=== PATIENT | male | born 1945 | race Hispanic/Latino ===

== ENCOUNTER 2016-11-30 17:28 | Emergency (ER) | payer MEDICARE, MEDICAID ==
[~2016-11-30] VITALS: Ht 167.6 cm; Wt 81.8 kg
[~2016-11-30 17:28] MED LIST: FINA5TAB9 PO; METO50TA3 PO; TAMS0.4C98 PO
[2016-11-30 17:30] VITALS: BP 203/101; PULSE 95; RESP 18; O2SAT 99
--- NOTE | 2016-11-30 18:37 | ED.REPORT ---
HPI-General Illness Date of Service Nov 30, 2016 ED Provider: Fredy Gallegos DO Pt is a 71 year old male with a history of HTN who presents to the ED complaining of elevated blood pressure (187). He c/o associated elevated heart rate. He denies headache, chest pain, and SOB. Pt reports that he started new medication (10 mg lisinopril) for his HTN, but he was previously taking 100 mg metoprolol BID 1 week ago. The pt was previously in [place], but he ran out of his medication upon arrival to the . Nursing Notes Stated Complaint: CHECK BLOOD PRESSURE Chief Complaint: General Complaint Nursing Notes Reviewed: Yes Allergies: Coded Allergies: No Known Allergies (Verified Allergy, Unknown, 12/23/13) Scheduled Finasteride (Finasteride) 5 Mg Tablet 5 MG PO DAILY Metoprolol Tartrate (Metoprolol Tartrate) 50 Mg Tablet 50 MG PO BID Tamsulosin (Flomax) 0.4 Mg Capsule 0.4 MG PO DAILY General Time Seen by MD: 18:37 Chief Complaint Other (elevated blood pressure) Hx Obtained From: Patient Arrived By: Walk-in Sudden in Onset?: No Onset Occurred: Just prior to arrival Symptom Duration: Since onset Severity: Current: No pain currently Severity: Maximum: No pain Recent Healthcare: Recent doctor visit Similar Sx Previous: No Past Medical History Past Medical History BPH Reports: Hypertension Past Surgical History Denies Smoking History Never Smoker Social History Alcohol Use: Denies alcohol use Drug Use: Denies drug use Other Social History: Good social support Ambulatory Status Independent Review of Systems + elevated blood pressure + elevated heart rate Full Review of Systems Respiratory: Denies: Shortness of breath Cardiovascular: Denies: Chest pain Neurologic: Denies: Headache Complete sys rev & neg: except as marked. Physical Exam Vital Signs Vital Signs Date Time Temp Pulse Resp B/P Pulse Ox O2 Delivery O2 Flow Rate FiO2 11/30/16 22:07 56 16 176/82 100 Room Air 11/30/16 20:30 165/65 11/30/16 19:14 165/68 11/30/16 17:30 95 18 203/101 99 Room Air Initial VS: Reviewed Head / Eyes: Atraumatic, Normocephalic Neck: Supple, Full range of motion Respiratory: Breath sounds normal, Clear to auscultation, No respiratory distress Cardiovascular: Regular rate & rhythm, Heart sounds normal, Intact distal pulses Abdomen / GI: Soft, Non-tender Extremities: Vascular intact, Neuro intact Skin: Warm, Dry, No cyanosis Neurologic: Alert, Oriented, Nonfocal Psychiatric: Mood/affect normal, Behavior normal General/Constitutional: Awake, Alert Interpretation & Diagnostics Lab Results Interpretation Result Diagram: 11/30/16193311/30/161933 Test 11/30/16 19:34 White Blood Count 6.2th/mm3 (3.8-10.1) Red Blood Count 4.56mil/mm3 (4.40-5.80) Hemoglobin 14.8g/dL (13.8-17.2) Hematocrit 41.9% (41.0-50.0) Mean Corpuscular Volume 91.9fL (81-100) Mean Corpuscular Hemoglobin 32.5pg (27.0-35.0) Mean Corpuscular Hemoglobin Concent 35.3% (32.0-37.0) Red Cell Distribution Width 12.2% (12.3-15.4) Platelet Count 207bil/L (150-400) Neutrophils (%) (Auto) 59.3% (40-74) Lymphocytes (%) (Auto) 31.1% (14-46) Monocytes (%) (Auto) 8.5% (4-12) Eosinophils (%) (Auto) 0.8% (0-5) Basophils (%) (Auto) 0.3% (0-3) Sodium Level 136mEq/L (134-144) Potassium Level 4.3mEq/L (3.5-5.2) Chloride Level 102mEq/L (97-108) Carbon Dioxide Level 20mmol/L (18-29) Blood Urea Nitrogen 16mg/dL (8-27) Creatinine 0.67mg/dL (0.76-1.27) Estimat Glomerular Filtration Rate 124mL/min (>59) Glucose Level 134mg/dL (60-99) Calcium Level 9.2mg/dL (8.5-10.1) Total Bilirubin 0.5mg/dL (0.0-1.2) Aspartate Amino Transf (AST/SGOT) 13U/L (0-50) Alanine Aminotransferase (ALT/SGPT) 9U/L (0-44) Alkaline Phosphatase 69U/L (25-160) Troponin T < 0.010ug/L (0.0-0.011) Total Protein 7.4g/dL (6.4-8.4) Albumin 4.1g/dL (3.4-5.0) Hold Turner Top Tube Received (Received) ECG Interpretation Time: 20:30 Interpreted by: ED physician Normal ECG Interpretation: Normal ECG w/ rate of... (61) Re-Eval/Medical Decision Med Decision/Clinical Course I think there is a component of metoprolol withdrawal. He was given 50 mg orally and his blood pressure came down to 160 his heart rate was in the 70s. I am to start him back on the metoprolol he will slowly graduate the dose.* Metformin 25 and try to see what his target is going to be. I did not initiate a 100 mg twice daily because he is been added lisinopril already. Labs look good. WI ruled out. No signs of stroke or end organ disease. This is essentially asymptomatic hypertension. Routine outpatient follow-up recommended. Source of Hx: Old records Time of Eval: 21:58 Re-Evaluation/Progress Note: Pt rechecked. Informed pt of plan for discharge. Pt understands and agrees with plan for discharge. F/U instructions and RTER warnings given. All questions addressed. Counseled Regarding: Diagnosis, Lab results, Need for follow-up, When/why to return to ED Discharge & Departure Primary Impression: High blood pressure Hypertension type: unspecified secondary hypertension Qualified Code: I15.9 - Secondary hypertension, unspecified Disposition: Home Discharge Condition All VS Reviewed: Yes Condition: Stable Patient Instructions: Hypertension (ED) Additional Instructions: Your ECG, blood tests, and labs were all very reassuring. Continue with your lisinopril medication. Start taking metoprolol 1x daily. This dose may need to be increased in a few weeks. Call your primary care provider on Wednesday for a follow up appointment this week. Check your blood pressure 3x daily and keep a log of your blood pressure results. Return to the Emergency Department for any new or worrisome symptoms. Referrals: Re Ramírez DO (PCP) Scribe Attestation Portions of this note were transcribed by Katharina Oconnor. I, Dr. Gallegos personally performed the history, physical exam and medical decision-making; I reviewed and confirmed the accuracy of the information in the transcribed note. Signed by : Juan Alberto Garíca, 11/30/16. copies to: Re Ramírez Todd P DO Nov 30, 2016 18:37 Katharina Murray Nov 30, 2016 19:46
[2016-11-30 19:14] VITALS: BP 165/68
[2016-11-30 19:43] LABS: BASOPHILS % (AUTO) 0.3 % (0-3); EOSINOPHILS % (AUTO) 0.8 % (0-5); MONOCYTES % (AUTO) 8.5 % (4-12); Mean Corpuscular Hemoglobin 32.5 pg (27.0-35.0); Mean Corpuscular Volume 91.9 fL (81-100); NEUTROPHILS % (AUTO) 59.3 % (40-74); Platelet Count 207 bil/L (150-400)
[2016-11-30 20:15] LABS: TROPONIN T < 0.010 ug/L (0.0-0.011)
[2016-11-30 20:30] VITALS: BP 165/65
[2016-11-30 22:07] VITALS: BP 176/82; PULSE 56; RESP 16; O2SAT 100
== END 2016-11-30 22:07 | disposition home or self-care (01) ==
LOC: SED 17:28
DX: I15.9 Secondary hypertension, unspecified (principal)